=== PATIENT | male | born 1955 | race Hispanic/Latino ===

== ENCOUNTER 2016-10-25 08:12 | Day surgery (SDC) | payer MEDICARE ==
[2013-03-04 13:23] VITALS: PULSE 100
[2016-10-15 08:40] VITALS: BMI 29.1
[~2016-10-25 08:12] MED LIST: Lactated Ringer's 500 ML IV ONE; Phenylephrine 2.5% Opht Soln OS SCH; Tropicamide 1% Opht SOLUTION OS SCH
[2016-10-25 09:21] LABS: INR 1.4
[2016-10-25] MEDS ORDERED: Chondroitin/Hyaluronate Opth Syringe KIT (0.55 ml-0.5 ml) IO ONE (10:15)
[2016-10-25] MEDS ORDERED: Carbachol 0.01% IO ONE (10:15)
[2016-10-25] MEDS: Chondroitin/Hyaluronate Opth Syringe KIT (0.55 ml-0.5 ml) IO ONE ×2 (10:16→10:40)
[2016-10-25] MEDS: Tobramycin/Dexamethasone OPHT OINT ONE ×2 (10:17→10:40)
[2016-10-25] MEDS: Hyaluronidase Human, Recombi 150 U/ML VIAL ONE ×2 (10:17→10:30)
[2016-10-25] MEDS: Povidone Iodine Ophthalmic 5% Soln ONE ×2 (10:18→10:40)
[2016-10-25] MEDS: Tetracaine 0.5% Ophth (OR ONLY) ONE ×2 (10:19→10:40)
[2016-10-25] MEDS ORDERED: Lactated Ringer's 1,000 ML IV ONE (10:25)
[2016-10-25] MEDS ORDERED: Midazolam 2 MG/2 ML VIAL ONE (10:27)
[2016-10-25] MEDS ORDERED: Propofol 10 mg/ml Inj (20 ML) ONE (10:31)
[2016-10-25 12:22] VITALS: RESP 18; TEMP 97.4; O2SAT 100
[2016-10-25 12:25] VITALS: BP 140/73; PULSE 71
--- NOTE | 2016-10-29 08:29 | OP ---
PROCEDURE DATE: 10/25/2016 PREOPERATIVE DIAGNOSIS: Nuclear cataract left eye. POSTOPERATIVE DIAGNOSIS: Nuclear cataract left eye. OPERATIVE PROCEDURE: Cataract extraction with lens implant left eye. ANESTHESIA: Retrobulbar block. ATTENDING: Dr. Heber Lopez COMPLICATIONS: None. ESTIMATED BLOOD LOSS: Zero. PROCEDURE: The patient was brought to the operating room and properly identified. Anesthesia staff a dministered intravenous sedation and retrobulbar block was given to the surgical eye. The patient wa s then prepped and draped in the usual sterile fashion. Attention was turned to the surgical eye. A lid speculum was placed into interpalpebral fissure. Si tting temporally two paracentesis incisions were made. The anterior chamber was filled with viscoela stic and a triplanar clear corneal incision was made. Using a cystotome anterior capsular leaflet wa s created. Utrata forceps were used to create a continuous curvilinear capsulorrhexis. Balanced oumar t solution on a cannula was used to hydrodissect and hydrodelineate the lens. The lens was then phac oemulsified with no complications. Automated irrigation and aspiration was used to remove the cortex . Viscoelastic was used to deepen the anterior chamber. The lens was placed in the capsular bag. A utomated irrigation and aspiration was used to remove the viscoelastic. The anterior chamber was milagros led with Miochol. The wounds were hydrated with balanced salt solution. There was noted to be no le ak at the end of the case and the lens was well positioned. The lid speculum was removed. The eye w as given antibiotics and steroids and covered with a patch and shield. [facility] stable condition. Heber Lopez MD cc: [id number] TT: 10/26/2016 12:10:21 en 10/26/2016 11:57:06
== END 2016-10-25 12:00 | disposition home or self-care (01) ==
LOC: C.SDS 08:12
PROVIDERS: ATTEND Ophthalmology
DX: H25.12 Age-related nuclear cataract, left eye (principal)
CPT/HCPCS: 36415; 66984; 85610; 85730; J2250; J2704; J3010; J3470; J7120; V2632